=== PATIENT | female | born 1985 | race Caucasian/White ===

== ENCOUNTER 2018-03-07 19:44 | Inpatient (IN) | payer BC ==
[~2018-03-07] VITALS: Ht 162.6 cm; Wt 91.2 kg
--- NOTE | 2018-03-07 20:01 | NUR ---
BIB SELF COMPLAINING OF SUBSTERNAL CHEST PAIN AND DIFFICULTY BREATHING SINCE MONDAY. PT AA/OX4 SITTING UP IN BED SPEAKING FULL SENTENCES. SKIN PALE, WARM, MOIST. SELF TRANSFERED FROM WHEELCHAIR TO BED WITH NO DIFFICULTY. NAD. O2 SAT 88% ROOM AIR. PT PLACED ON 4LPM VIA NC. NOTIFIED. ALL OTHER VSS. WILL CONTINUE TO MONITOR. Addendum: 03/07/18 at 2005 by ANKUR LUNG SOUNDS CLEAR IN ALL DEAN.
[2018-03-07 20:36] LABS: BASOPHILS # (AUTO) 0.1 /CMM (0.0-0.2); BASOPHILS % (AUTO) 0.6 % (0.0-2.0); HEMATOCRIT 35 % (33-45); HEMOGLOBIN 11.7 g/dL (11.5-14.8); LYMPHOCYTES # (AUTO) 3.7 /CMM (0.8-4.8); LYMPHOCYTES % (AUTO) 37.9 % (20.0-44.0); MEAN CORPUSCULAR HGB CONC 34 g/dl (31.0-36.0); MEAN CORPUSCULAR VOLUME 81 fL (82-100); MONOCYTES # (AUTO) 0.6 /CMM (0.1-1.30); NEUTROPHILS # (AUTO) 5.2 /CMM (1.8-8.9); NEUTROPHILS % (AUTO) 53.5 % (43.0-81.0); PLATELET COUNT (AUTO) 275 /CMM (150-450); RDW COEFFICIENT OF VARIATION 12.5 (11.5-15.0); WHITE BLOOD COUNT (AUTO) 9.8 K/uL (4.3-11.0)
[2018-03-07] MEDS ORDERED: IOHEXOL-350 100 ML VIAL IV ONE (20:44)
[2018-03-07 20:46] LABS: CALCIUM, SERUM 8.7 mg/dL (8.5-10.1); CARBON DIOXIDE 26 mmol/L (21-32); CHLORIDE 105 mmol/L (98-107); CREATININE 0.7 mg/dL (0.6-1.3); GLUCOSE 104 mg/dL (74-106); SODIUM SERUM 139 mmol/L (136-145); UREA NITROGEN, BLOOD 17 mg/dL (7-18)
[2018-03-07 20:54] LABS: TROPONIN I < 0.017 ng/mL (0.00-0.056)
[2018-03-07 20:58] LABS: ALANINE AMINOTRANSFERASE 26 U/L (12-78); ALBUMIN 3.1 g/dL (3.4-5.0); ALKALINE PHOSPHATASE 74 U/L (46-116); ASPARTATE AMINOTRANSFERASE 16 U/L (15-37); B-TYPE NATRIURETIC PEPTIDE 2545 PG/ML (0-125); BILIRUBIN,DIRECT 0.1 mg/dL (0.0-0.2); BILIRUBIN,TOTAL 0.5 mg/dL (0.2-1.0); INR 0.93 (0.87-1.13); TOTAL PROTEIN, SERUM 7.3 g/dL (6.4-8.2)
--- NOTE | 2018-03-07 22:07 | NUR ---
Edward doe in ED - 03/07/18 at 2220 by ANKUR TPA HEPARIN INITIATED PER ORDERED BY . CONSENT SIGNED BY PT.
--- NOTE | 2018-03-07 22:10 | NUR ---
tpa exclusion criteria completed. Consent signed by patient. TPA 100mg over 2 hours drip started as ordered by Dr. Chester.
--- NOTE | 2018-03-07 22:19 | NUR ---
EMT AT BEDSIDE FOR LT LEG CAST REMOVAL
--- NOTE | 2018-03-07 22:34 | NUR ---
PT RESTING COMFORTABLY IN BED. SITTING UP IN BED. VSS. NAD. WILL CONTINUE TO MONITOR.
[2018-03-07] MEDS ORDERED: HYDR-552 PO (22:45)
[2018-03-07] MEDS ORDERED: IBUP100O19 PO (22:46)
[2018-03-07] MEDS ORDERED: ALTEPLASE 100 MG/VIAL VIAL IV ONE (23:30)
--- NOTE | 2018-03-07 23:41 | NUR ---
AA/OX4, TALKING TO FAMILY AT BEDSIDE. STABLE CONDITION. VSS. NAD.
--- NOTE | 2018-03-07 23:48 | NUR ---
TPA ADMINISTERED. LAB AT BEDSIDE FOR BLOOD DRAW.
[2018-03-08] VITALS (46 sets, daily range): BP systolic 93–136; BP diastolic 45–88
[2018-03-08] MEDS ORDERED: HEPARIN INFUSION/D5W 500 ML IV PRN
[2018-03-08] MEDS ORDERED: Z GUARD REMEDY 2 OZ OINT TP PRN
[2018-03-08] MEDS ORDERED: ONDANSETRON HCL/PF 4 MG/2 ML VIAL IVP PRN
[2018-03-08] MEDS ORDERED: MORPHINE SULFATE INJ 2 MG/ML DISP.SYRIN IV PRN
[2018-03-08] MEDS ORDERED: ZOLPIDEM TARTRATE 5 MG TABLET PO PRN
[2018-03-08] MEDS ORDERED: MAG HYDROX/AL HYDROX/SIMETH 30 ML UDC PO PRN
[2018-03-08] MEDS ORDERED: ACETAMINOPHEN 325 MG TABLET PO PRN
[2018-03-08] MEDS ORDERED: MAGNESIUM HYDROXIDE 30 ML UDC PO PRN
[2018-03-08] MEDS ORDERED: HEPARIN INFUSION/D5W 500 ML IV ONE (00:33)
--- NOTE | 2018-03-08 00:58 | NUR ---
REPORT GIVEN TO RAILROAD CAR TRUCK BUILDERCASIE SELLERS
--- NOTE | 2018-03-08 01:10 | NUR ---
LOCKSMITH HELPER: PT ADMITTED S/P TPA ADMINISTRATION FOR PULMONARY EMBOLISM. A/O X 3. PLACED ON 2L 02 VIA NC WT NO ACUTE DISTRESS. NO C/O CHEST PAIN DUE TO SOB AT THIS TIME. GENTLY HANDLED DUE TO LEFT FIBULA FRACTURE. ST ON SHIFT MGR WT HR LESS THAN 120. AFEBRILE. RT. AC IV SITE RUNNING HEPARIN AT 1584U/HR AND ROUNDED TO 1600U/HR PER 90KG WT.-BASED HEPARIN DOSING PROTOCOL. PT NOTED WT SLIGHT VAGINAL BLEEDING AND CLARIFIED THAT SHE STARTED HER PERIOD YESTERDAY. BODY CHECK AND GOOD SKIN CARE RENDERED. NO OTHER OVERT BLEEDING NOTED. NO S/S OF INFILTRATION ON IV SITES. VERBALIZED RELIEF RIGHT AFTER TPA WAS ADMINISTERED. SAFETY PRECAUTION NOTED. WILL CONTINUE TO MONITOR.
--- NOTE | 2018-03-08 01:16 | NUR ---
PT TRANSPORTED STABLE CONDITION, VSS, NAD, TO ICU VIA ACLS PROTOCOL
[2018-03-08] MEDS: IV NS 0.9% 1,000 ML IV PRN ×2 (01:27→15:21)
[2018-03-08] MEDS ORDERED: RANI150T8 PO (01:39)
[2018-03-08 04:31] LABS: BASOPHILS # (AUTO) 0.1 /CMM (0.0-0.2); BASOPHILS % (AUTO) 0.6 % (0.0-2.0); EOSINOPHILS % (AUTO) 1.3 % (0.0-6.0); HEMATOCRIT 31 % (33-45); HEMOGLOBIN 10.2 g/dL (11.5-14.8); LYMPHOCYTES # (AUTO) 3.3 /CMM (0.8-4.8); LYMPHOCYTES % (AUTO) 32.9 % (20.0-44.0); MEAN CORPUSCULAR HGB CONC 33 g/dl (31.0-36.0); MEAN CORPUSCULAR VOLUME 82 fL (82-100); MONOCYTES # (AUTO) 0.6 /CMM (0.1-1.30); MONOCYTES % (AUTO) 5.9 % (2.0-12.0); NEUTROPHILS % (AUTO) 59.3 % (43.0-81.0); PLATELET COUNT (AUTO) 214 /CMM (150-450); RDW COEFFICIENT OF VARIATION 13.4 (11.5-15.0); RED BLOOD CELL COUNT(AUTO) 3.78 MIL/uL (4.0-5.2); WHITE BLOOD COUNT (AUTO) 10.1 K/uL (4.3-11.0)
[2018-03-08 04:54] LABS: CALCIUM, SERUM 8.2 mg/dL (8.5-10.1); CREATININE 0.7 mg/dL (0.6-1.3); MAGNESIUM 1.9 mg/dL (1.8-2.4); PHOSPHORUS 4.8 mg/dL (2.5-4.9); POTASSIUM 3.7 mmol/L (3.5-5.1)
--- NOTE | 2018-03-08 06:30 | NUR ---
RANCH SUPERVISOR: NO SIGNIFICANT RIANNA. NO ACTIVE BLEEDING EXCEPT HER NORMAL MENSTRUAL FLOW. VS WITHIN HER BASELINE.
--- NOTE | 2018-03-08 07:10 | NUR ---
RECIEVED PT ON HEPARIN DRIP PER PROTOCOL SEE IV SPREADSHEET. IV FLUIDS RUNNING PER ORDER. IV SITE ARE C/D/I/P NO SIGNS OF INFILTRATION. PT C/O LEFT ANKLE PAIN CHRONIC WILL GIVE PRN NORCO PER REQUEST. NON-PHARMACOLOGICAL PAIN MANAGEMENT INITIATED. 2L NASAL CANULLA SATURATING AT >98. SHE DENIES TROUBLE BREATHING, CHEST PAIN. SAFETY ASPIRATION AND SKIN PRECAUTIONS IN PLACE. NO SIGNS OF BLEEDING AT THIS TIME. WILL CONTINUE TO MONITOR.
[2018-03-08] MEDS: HYDROCODONE/APAP 5/325MG 1 EACH TABLET PO PRN ×3 (07:40→19:35)
--- NOTE | 2018-03-08 08:15 | NUR ---
PER NEWEST PTT 37 WILL GIVE 3600 UNIT BOLUS AND INCREASE HEPARIN DRIP GTT BY 2 UNITS/KG/TS=060 UNITS PER HOUR PER PROTOCOL. PT HEPARIN DRIP RUNNING AT 1800 UNITS/HR
--- NOTE | 2018-03-08 08:17 | NUR ---
DR JUAREZ AT BEDSIDE PER MD HE WILL CANCEL HEPARIN DRIP AND ORDERED LOVENOX PT IS TO BLE DOPPLER.
[2018-03-08] MEDS ORDERED: HEPARIN SODIUM, PORCINE 5000 UNITS/1 ML VIAL IV ONE (08:30)
--- NOTE | 2018-03-08 08:50 | NUR ---
SHOE STICKS REPAIRER LUND AT BEDSIDE PER SHOE STICKS REPAIRER FOR PT TO STAY IN ICU FOR 24 HOUR OBSERVATION
[2018-03-08 08:52] LABS: IRON, SERUM 44 ug/dl (50-175); TOTAL IRON BINDING CAPACITY 271 ug/dl (250-450)
[2018-03-08] MEDS ORDERED: MORPHINE SULFATE INJ 4 MG/ML DISP.SYRIN IV PRN (09:00)
[2018-03-08 09:03] LABS: FERRITIN 58 ng/mL (8-388)
[2018-03-08] MEDS: ENOXAPARIN SODIUM 100 MG/ML DISP.SYRIN SQ SCH ×2 (09:19→20:09)
--- NOTE | 2018-03-08 09:20 | NUR ---
EXCHANGE ENGINEER AT BEDSIDE FOR ECHO AND DOPPLER. PT UPDATE ON CARE PLAN STATES UNDERSTANDING
[2018-03-08 09:21] LABS: TROPONIN I < 0.017 ng/mL (0.00-0.056)
--- NOTE | 2018-03-08 09:30 | NUR ---
DR CLEMONS AT BEDSIDE DR AWARE THAT PT IS POSITIVE FOR LEFT POPLITEAL DVT. PENDING DR DIANE CONSULTATION. PT OKAY TO BE ON ROOM AIR PER . PT 96 ON ROOM AIR.PER ASHELY OK FOR 1HR VS
--- NOTE | 2018-03-08 11:00 | NUR ---
TALL AIRCAST BOOT PLACED ON LEFT LEG PER DR BUENO ORDER. NO COMPLICATIONS NOTED. PULSES PRESENT S/P APPLICATION
--- NOTE | 2018-03-08 18:51 | NUR ---
ALL DUE MEDS GIVEN AND ALL NEEDS MET. PATIENT PAIN CONTROLLED WITH PRN MEDICATIONS AND NON PHARM MEASURES. BOOT IN PLACE PER DR BUENO ORDER. PATIENT STARTED PERIOD; PERICARE COMPLETED, PATIENT INDEPENDENT WITH ADLS. PATIENT CONTINUES TO DENY SOB, DIFFICULTY BREATHING AND PAIN. STABLE ON ROOM AIR. SAFETY, SKIN, AND ASPIRATION PRECAUTIONS IN PLACE AND MONITORED THROUGHOUT DAY.
--- NOTE | 2018-03-08 19:30 | NUR ---
AFTER [employer] PROGRAM COORDINATOR INITIAL NOTES RECEIVED PATIENT IN BED, AWAKE, ALERT AND ORIENTED X3, ABLE TO VERBALIZE NEEDS. PATIENT DENIES PAIN AT THIS TIME. BREATHING EVEN AND NONLABORED, TOLERATING ROOM AIR WELL, FREE FROM ANY S/S OF RESPIRATORY DISTRESS. IV FLUIDS INFUSING ORDERED. PLAN OF CARE DISCUSSED WITH THE PATIENT, WHOM VERBALIZES UNDERSTANDING AT THIS TIME. TALL AIRCAST BOOT REMAINS IN PLACE. WILL CONTINUE TO CLOSELY MONITOR THE PATIENT
[2018-03-08] MEDS: FAMOTIDINE (20 MG) 20 MG TABLET PO SCH (20:07)
--- NOTE | 2018-03-08 21:00 | NUR ---
RETAIL BRANCH MANAGER NOTES PATIENT SEEN AND EXAMINED BY DR DIANE. NNO RECEIVED AT THIS TIME. PER DR DIANE, HE WILL SPEAK TO OTHER PHYSICIANS ON THE CASE REGARDING POSSIBLE NEED TO CHANGE ANTICOAGULANT TO PO IN THE AM. ALSO, NO NEED FOR FILTER AT THIS TIME.
[2018-03-09] VITALS (11 sets, daily range): BP systolic 102–119; BP diastolic 59–78
[2018-03-09] MEDS: IV NS 0.9% 1,000 ML IV PRN (04:19)
[2018-03-09] MEDS: HYDROCODONE/APAP 5/325MG 1 EACH TABLET PO PRN ×3 (04:40→20:34)
[2018-03-09 04:52] LABS: BASOPHILS # (AUTO) 0.1 /CMM (0.0-0.2); BASOPHILS % (AUTO) 1.1 % (0.0-2.0); EOSINOPHILS % (AUTO) 3.6 % (0.0-6.0); HEMATOCRIT 34 % (33-45); HEMOGLOBIN 11.3 g/dL (11.5-14.8); LYMPHOCYTES # (AUTO) 3.1 /CMM (0.8-4.8); LYMPHOCYTES % (AUTO) 37.5 % (20.0-44.0); MEAN CORPUSCULAR HGB CONC 33 g/dl (31.0-36.0); MEAN CORPUSCULAR VOLUME 82 fL (82-100); MONOCYTES # (AUTO) 0.4 /CMM (0.1-1.30); MONOCYTES % (AUTO) 4.4 % (2.0-12.0); NEUTROPHILS # (AUTO) 4.4 /CMM (1.8-8.9); NEUTROPHILS % (AUTO) 53.4 % (43.0-81.0); PLATELET COUNT (AUTO) 224 /CMM (150-450); RDW COEFFICIENT OF VARIATION 13.4 (11.5-15.0); RED BLOOD CELL COUNT(AUTO) 4.18 MIL/uL (4.0-5.2); WHITE BLOOD COUNT (AUTO) 8.3 K/uL (4.3-11.0)
[2018-03-09 04:58] LABS: TROPONIN I < 0.017 ng/mL (0.00-0.056)
[2018-03-09 05:10] LABS: ALANINE AMINOTRANSFERASE 32 U/L (12-78); ALBUMIN 2.9 g/dL (3.4-5.0); ALKALINE PHOSPHATASE 70 U/L (46-116); ASPARTATE AMINOTRANSFERASE 27 U/L (15-37); BILIRUBIN,TOTAL 0.5 mg/dL (0.2-1.0); CALCIUM, SERUM 8.4 mg/dL (8.5-10.1); CARBON DIOXIDE 29 mmol/L (21-32); CHLORIDE 105 mmol/L (98-107); CREATININE 0.6 mg/dL (0.6-1.3); GLUCOSE 84 mg/dL (74-106); PHOSPHORUS 4.1 mg/dL (2.5-4.9); POTASSIUM 3.9 mmol/L (3.5-5.1); SODIUM SERUM 135 mmol/L (136-145); TOTAL PROTEIN, SERUM 6.7 g/dL (6.4-8.2); UREA NITROGEN, BLOOD 8 mg/dL (7-18)
--- NOTE | 2018-03-09 07:00 | NUR ---
TELLER COORDINATOR NOTES PATIENT RESTING COMFORTABLY IN BED, NO ACUTE CHANGES THROUGHOUT THE SHIFT. WILL ENDORSE THE PATIENT TO THE AM SHIFT NURSE FOR CONTINUITY OF CARE
--- NOTE | 2018-03-09 08:22 | NUR ---
received pt from fast food crew lead, a/o x4, SR, on RA, lung clear, mild edema L leg, tolerates diet, cast boot on L leg, uses bedside commode, v/s stable, no pain, pt turns and repositions by herself, family at the bedside.
[2018-03-09] MEDS: FAMOTIDINE (20 MG) 20 MG TABLET PO SCH ×2 (08:55→20:33)
[2018-03-09] MEDS: ENOXAPARIN SODIUM 100 MG/ML DISP.SYRIN SQ SCH (08:56)
--- NOTE | 2018-03-09 11:40 | NUR ---
MS RN OPENING NOTES RECEIVED PATIENT TRANSFER FROM ICU. PATIENT IS IN STABLE CONDITION. IN NO APPARENT DISTRESS. BEDSIDE RAILS ARE UPX2. BED IS LOCKED AND LOWERED. CALL LIGHT IS WITHIN REACH. IV LINE IS INTACT AND PATENT. PATIENT IS WEARING CAST BOOT ON THE LEFT LEG. WILL CONTINUE TO MONITOR PATIENT.
--- NOTE | 2018-03-09 11:53 | NUR ---
[facility] report given to Oleg.
[2018-03-09 15:13] LABS: *SPE A/G RATIO 0.9 (0.7-1.7); *SPE ALBUMIN 2.7 g/dL (2.9-4.4); *SPE ALPHA-1-GLOBULIN 0.3 g/dL (0.0-0.4); *SPE ALPHA-2-GLOBULIN 0.9 g/dL (0.4-1.0); *SPE BETA GLOBULIN 0.8 g/dL (0.7-1.3); *SPE GLOBULIN, TOTAL 3.1 g/dL (2.2-3.9); *SPE M-SPIKE Not Observed g/dL (Not Observed); *SPEGAMMA GLOBULIN 0.9 g/dL (0.4-1.8)
[2018-03-09] MEDS: APIXABAN 5 MG TABLET PO SCH (16:24)
--- NOTE | 2018-03-09 18:23 | NUR ---
MS RN CLOSING NOTES PATIENT IS IN STABLE CONDITION. IN NO APPARENT DISTRESS. BEDSIDE RAILS ARE UPX2. BED IS LOCKED AND LOWERED. CALL LIGHT IS WITHIN REACH. IV LINE IS INTACT AND PATENT. ALL NEEDS WEER MET. WILL ENDORSE CARE TO GARDEN IMPLEMENT MECHANIC NURSE FOR RIANNA.
--- NOTE | 2018-03-09 19:28 | NUR ---
MS RN OPENING NOTE RECEIVE PATIENT AWAKE IN BED, A/O X 3, CAST BOOT IN PLACE ON THE L. NO SOB OR DISTRESS NOTED, CALL LIGHT WITHIN REACH. SAFETY MEASURES IMPLEMENTED. WILL CONTINUE TO MONITOR THROUGHOUT SHIFT.
--- NOTE | 2018-03-10 06:13 | NUR ---
MS RN CLOSING NOTES ASLEEP AND EASILY AWAKEN, STABLE, TOLERATING ROOM AIR 98%. NOT IN DISTRESS. RESPIRATION EVEN AND UNLABORED. KEPT CLEAN AND DRY AND COMFORTABLE, ALL NURSING CARE RENDERED. NEEDS ATTENDED AND ANTICIPATED. ON LOW BED AT ALL TIMES TO ENSURE SAFETY. SAFE HAZARD FREE ENVIRONMENT PROVIDED. CALL LIGHT WITHIN EASY TO REACH. WILL ENDORSE NEXT SHIFT CONTINUITY OF CARE.
--- NOTE | 2018-03-10 07:47 | NUR ---
MS RN NOTES PATIENT RECEIVED RESTING INSIDE ROOM. AWAKE, ALERT AND ORIENTED X 4. VERBALLY RESPONSIVE AND RESPONDS TO VERBAL AND TACTILE STIMULI. BREATHING EVEN AND UNLABORED. NO SOB OR ACUTE DISTRESS NOTED. NO CHANGES IN LOC NOTED. PATIENT DENIES ANY PAIN OR DISCOMFORT. IV INTACT AND PATENT. MAINTAINED NWB ON LLE. WILL CONTINUE TO MONITOR. BED LOCKED AND IN LOW POSITION. BILATERAL UPPER SIDE RAILS UP AND LOCKED. CALL LIGHT WITHIN EASY REACH
[2018-03-10 08:00] VITALS: BP 103/73
[2018-03-10] MEDS: APIXABAN 5 MG TABLET PO SCH (08:18)
[2018-03-10] MEDS: FAMOTIDINE (20 MG) 20 MG TABLET PO SCH (08:18)
[2018-03-10] MEDS ORDERED: DOCU100C58 PO (09:47)
[2018-03-10] MEDS ORDERED: HYDR-552 PO (09:47)
[2018-03-10] MEDS ORDERED: APIX5TAB PO (09:47)
--- NOTE | 2018-03-10 12:12 | NUR ---
MS RN NOTES PATIENT FOR DISCHARGE HOME. DISCHARGE INSTRUCTIONS AND EDUCATION PROVIDED AND VERBALIZED UNDERSTANDING. ALL BELONGINGS COMPLETE ON DISCHARGE, NO REPORT OF MISSING INVENTORY. IV REMOVED WITH MINIMAL BLEEDING, PRESSURE DRESSING PLACED ON SITE. PATIENT LEFT UNIT VIA WHEELCHAIR AT 1200. ASSISTED WITH TRANSFER. LEFT VIA PRIVATE CAR. MD AWARE OF DISCHARGE.
== END 2018-03-10 12:00 | disposition home or self-care (01) | DRG 175 ==
LOC: ER 19:46 → ICU 22:43 → MED 03-09 11:41
PROVIDERS: ADMIT Internal Medicine; ATTEND Internal Medicine
DX: I26.99 Other pulmonary embolism without acute cor pulmonale (principal); J96.01 Acute respiratory failure with hypoxia; I82.432 Acute embolism and thrombosis of left popliteal vein; E87.1 Hypo-osmolality and hyponatremia; E44.1 Mild protein-calorie malnutrition; E66.9 Obesity, unspecified; E78.5 Hyperlipidemia, unspecified; S82.402D Unspecified fracture of shaft of left fibula, subsequent encounter for closed fracture with routine healing; W19.XXXD Unspecified fall, subsequent encounter; Z68.34 Body mass index [BMI] 34.0-34.9, adult; D64.9 Anemia, unspecified; K21.9 Gastro-esophageal reflux disease without esophagitis; Z98.84 Bariatric surgery status
CPT/HCPCS: 36415; 71045-TC; 73590-TC; 73610-TC; 80048-TC; 80053-TC; 80076-TC; 82728-TC; 83540-TC; 83735-TC; 83880; 84100-TC; 84155; 84165; 84439-TC; 84443-TC; 84484-TC; 84702-TC; 85025-TC; 85652-TC; 85730-TC; 87081-TC; 93307-TC; 93970-TC; A4606; J1644; J1650; J2997; J7030; Q9967; Z7610

== ENCOUNTER 2018-03-12 15:27 | Outpatient (CLI) | payer BC ==
[~2018-03-12 15:27] MED LIST: APIX5TAB PO; DOCU100C58 PO; HYDR-552 PO; IBUP100O19 PO; RANI150T8 PO
== END 2018-03-12 23:59 | disposition home or self-care (01) ==
LOC: MSC 15:27
PROVIDERS: ATTEND Internal Medicine
DX: Z09 Encounter for follow-up examination after completed treatment for conditions other than malignant neoplasm (principal); Z86.711 Personal history of pulmonary embolism; I82.432 Acute embolism and thrombosis of left popliteal vein; Z79.01 Long term (current) use of anticoagulants; S82.402D Unspecified fracture of shaft of left fibula, subsequent encounter for closed fracture with routine healing; W19.XXXD Unspecified fall, subsequent encounter; E66.9 Obesity, unspecified; D64.9 Anemia, unspecified; K21.9 Gastro-esophageal reflux disease without esophagitis; Z79.899 Other long term (current) drug therapy